=== PATIENT | female | born 1985 | race Caucasian/White ===

== ENCOUNTER 2021-12-26 11:21 | Outpatient (CLI) | payer BC ==
[2021-12-26 13:55] LABS: Hemoglobin 11.6 g/dL (12.0-15.5); Mean Corpuscular HGB CONC 32.7 g/dL (32.0-36.0); Mean Corpuscular Hemoglobin 26.4 pg (27.0-33.0); Mean Corpuscular Volume 80.9 fl (81.6-98.3); Mean Platelet Volume 9.4 fl (7.4-10.4); Platelet Count 229 10x3/uL (150-450); RBC Distribution Width 17.5 % (11.5-14.5); Red Blood Cell (RBC) Count 4.39 10x6/uL (3.90-5.03); White Blood Cell (WBC) Count 10.6 10x3/uL (3.5-10.5)
[2021-12-26 14:58] LABS: Syphilis Antibody Nonreactive (Nonreactive); Syphilis Antibody Index 0.03 S/CO (<1.00 Non-Reactive)
[2021-12-26 14:59] LABS: HBSAg Index 0.21 S/CO (0-0.99); HIV (1/2) Antibody/Antigen Non-Reactive (NonReactive); HIV 1/2 INDEX 0.14 S/CO (<1.00); Hep B Surf Ag Non-Reactive S/CO (NonReactive)
== END 2021-12-26 11:22 | disposition home or self-care (01) ==
LOC: CSHLAB 11:21
PROVIDERS: ATTEND Obstetrics & Gynecology
DX: Z01.812 Encounter for preprocedural laboratory examination (principal); O34.219 Maternal care for unspecified type scar from previous cesarean delivery
CPT/HCPCS: 85027; 86780; 86850; 86900; 86901; 87340; 87389

== ENCOUNTER 2021-12-26 18:19 | Inpatient (IN) | payer BC ==
[2021-12-26] MEDS ORDERED: hydrALAZINE 20 MG/ML VIAL SLOW IVP PRN ×3 (18:33→23:57)
[2021-12-26] MEDS ORDERED: Famotidine/PF 20 mg/2ml Vial SLOW IVP PRN (18:33)
[2021-12-26] MEDS ORDERED: Promethazine HCl 25 MG/ML VIAL IM PRN ×2 (18:33→20:10)
[2021-12-26] MEDS ORDERED: Bicitra 30 ML UDCUP PO PRN (18:33)
[2021-12-26] MEDS ORDERED: Ondansetron PF 4 MG/2 ML Vial IVP PRN ×2 (18:33→20:10)
[2021-12-26] MEDS ORDERED: Fentanyl 100 MCG/2 ML VIAL ONE (18:43)
[2021-12-26] MEDS ORDERED: Morphine PF 10 MG/10 ML VIAL ONE (18:43)
[2021-12-26] MEDS ORDERED: Ondansetron PF 4 MG/2 ML Vial ONE (18:44)
[2021-12-26] MEDS ORDERED: Phenylephrine 40 MG/NS 250 ML 250 ML ONE (18:44)
[2021-12-26] MEDS ORDERED: Oxytocin 10 UNITS/ML VIAL ONE (18:44)
[2021-12-26] MEDS ORDERED: Ketorolac Tromethamine 30 MG/ML VIAL ONE (18:44)
[2021-12-26] MEDS ORDERED: Lactated Ringer's 1,000 ML IV SCH (18:45)
[2021-12-26] MEDS ORDERED: CEFAZOLIN 2 GM in Sodium Chloride 0.9% 100 ML IVPB SCH (18:45)
[2021-12-26 19:21] VITALS: BMI 30.4
[2021-12-26] MEDS ORDERED: Naloxone HCl 0.4 mg/ml Vial IVP PRN ×2 (20:10)
[2021-12-26] MEDS ORDERED: L&D-Morphine 4 MG/ML VIAL SLOW IVP PRN (20:10)
[2021-12-26] MEDS ORDERED: Naloxone HCl 0.4 mg/ml Vial IV PRN (20:10)
[2021-12-26] MEDS ORDERED: Promethazine HCl 25 MG SUPP PR PRN (20:10)
[2021-12-26] MEDS ORDERED: Ondansetron HCl/PF 4 MG/2 ML Vial IVP PRN (20:10)
[2021-12-26] MEDS ORDERED: Fentanyl 100 MCG/2 ML VIAL SLOW IVP PRN (20:10)
[2021-12-26] MEDS ORDERED: diphenhydrAMINE 50 MG/ML VIAL IVP PRN (20:10)
[2021-12-26] MEDS ORDERED: Meperidine HCl/PF 25 MG/ML VIAL SLOW IVP PRN (20:10)
[2021-12-26] MEDS ORDERED: Moisturizing Cream (Eucerin) 113 GM JAR TOP PRN (20:10)
[2021-12-26] MEDS ORDERED: Communication Order-Pharmacy FS SCH (20:15)
[2021-12-26] MEDS ORDERED: Ketorolac Tromethamine 30 MG/ML VIAL IVP SCH (20:15)
[2021-12-26] MEDS: Misoprostol 200 MCG TAB ONE (21:57)
[2021-12-26] MEDS ORDERED: Methylergonovine 0.2 MG/ML VIAL ONE (21:58)
[2021-12-26] MEDS ORDERED: Meperidine HCl/PF 25 MG/ML VIAL ONE (22:11)
[2021-12-26] MEDS ORDERED: Methylergonovine 0.2 MG/ML VIAL IM SCH (22:30)
[2021-12-26] MEDS ORDERED: Misoprostol 200 MCG TAB PR SCH (22:30)
[2021-12-26] MEDS ORDERED: Labetalol HCl 100 MG/20 ML VIAL SLOW IVP PRN ×2 (23:57)
[2021-12-27] MEDS ORDERED: diphenhydrAMINE 25 MG CAP PO PRN (01:52)
[2021-12-27] MEDS ORDERED: Simethicone Chewable 80 MG TAB PO PRN (01:52)
[2021-12-27] MEDS ORDERED: Boostrix 0.5 ML (Tdap) VIAL (>/=7 yrs of age) IM ONE (01:52)
[2021-12-27] MEDS ORDERED: hydrALAZINE 20 MG/ML VIAL SLOW IVP PRN (01:52)
[2021-12-27] MEDS ORDERED: Bisacodyl 10 MG SUPP PR PRN (01:52)
[2021-12-27] MEDS ORDERED: Docusate 100 MG CAP PO SCH (02:15)
[2021-12-27] MEDS ORDERED: Ferrous Sulfate 325 MG TAB PO SCH (02:15)
[2021-12-27 04:30] LABS: Hemoglobin 10.1 g/dL (12.0-15.5); Mean Corpuscular HGB CONC 32.9 g/dL (32.0-36.0); Mean Corpuscular Hemoglobin 26.3 pg (27.0-33.0); Mean Corpuscular Volume 79.9 fl (81.6-98.3); Mean Platelet Volume 9.7 fl (7.4-10.4); Platelet Count 190 10x3/uL (150-450); RBC Distribution Width 17.2 % (11.5-14.5); Red Blood Cell (RBC) Count 3.84 10x6/uL (3.90-5.03)
[2021-12-27] MEDS: Ketorolac Tromethamine 30 MG/ML VIAL IVP PRN ×2 (06:04→13:11)
[2021-12-27] MEDS ORDERED: HYDROcodone/Acetaminophen 5/325 mg Tablet PO PRN ×2 (08:15)
[2021-12-27] MEDS: Prenatal Vitamin 1 TAB PO SCH (09:44)
[2021-12-27] MEDS: Ibuprofen 800 MG TAB PO SCH (19:32)
[2021-12-27] MEDS: Ferrous Sulfate 325 MG TAB PO SCH (19:32)
[2021-12-27] MEDS: Docusate 100 MG CAP PO SCH (19:33)
[2021-12-28] MEDS: Ibuprofen 800 MG TAB PO SCH ×3 (05:27→21:21)
[2021-12-28] MEDS: Ferrous Sulfate 325 MG TAB PO SCH ×2 (07:24→21:00)
[2021-12-28] MEDS: Prenatal Vitamin 1 TAB PO SCH (09:02)
[2021-12-28] MEDS: Docusate 100 MG CAP PO SCH ×2 (09:02→21:21)
[2021-12-28] MEDS: Labetalol HCl 100 MG TAB PO SCH (21:22)
[2021-12-29] MEDS: Ibuprofen 800 MG TAB PO SCH ×3 (05:13→22:08)
[2021-12-29] MEDS: Docusate 100 MG CAP PO SCH ×2 (09:09→20:48)
[2021-12-29] MEDS: Labetalol HCl 100 MG TAB PO SCH ×2 (09:09→20:48)
[2021-12-29] MEDS: Prenatal Vitamin 1 TAB PO SCH (09:10)
[2021-12-29] MEDS: Ferrous Sulfate 325 MG TAB PO SCH (16:10)
[2021-12-30] MEDS: Ibuprofen 800 MG TAB PO SCH (06:19)
[2021-12-30] MEDS: Prenatal Vitamin 1 TAB PO SCH (09:30)
[2021-12-30] MEDS ORDERED: Labetalol HCl 200 MG TAB PO SCH (09:30)
[2021-12-30] MEDS: Ferrous Sulfate 325 MG TAB PO SCH ×2 (09:49→10:58)
[2021-12-30] MEDS: Docusate 100 MG CAP PO SCH (09:52)
[2021-12-30] MEDS: Labetalol HCl 100 MG TAB PO SCH (10:59)
[2021-12-30 11:09] VITALS: BP 129/87; TEMP 98
[2021-12-30] MEDS ORDERED: Labetalol HCl 100 MG TAB PO SCH (21:00)
== END 2021-12-30 11:40 | disposition home or self-care (01) | DRG 787 ==
LOC: CSHLD 18:19 → CSHPED 12-27 01:01
PROVIDERS: ADMIT Obstetrics & Gynecology; ATTEND Obstetrics & Gynecology
PROC: 10D00Z1 Extraction of Products of Conception, Low, Open Approach (ICD-10-PCS; principal; 2021-12-26)
DX: O30.043 Twin pregnancy, dichorionic/diamniotic, third trimester (principal); O41.03X1 Oligohydramnios, third trimester, fetus 1; O41.03X2 Oligohydramnios, third trimester, fetus 2; Z3A.37 37 weeks gestation of pregnancy; Z37.2 Twins, both liveborn; Z88.8 Allergy status to other drugs, medicaments and biological substances; O62.2 Other uterine inertia; D50.9 Iron deficiency anemia, unspecified; O90.81 Anemia of the puerperium; O32.8XX2 Maternal care for other malpresentation of fetus, fetus 2; O34.219 Maternal care for unspecified type scar from previous cesarean delivery
CPT/HCPCS: 36415; 51702; 85027; 86780; 86850; 86900; 86901; 87340; 87389; 88307; J0360; J1885; J2175; J2210; J2274; J2405; J2590; J3010